=== PATIENT | female | born 1995 | race African-American/Black ===

== ENCOUNTER 2016-11-23 22:26 | Emergency (ER) | payer BC, OTHER ==
[~2016-11-23] VITALS: Ht 170.2 cm; Wt 84.5 kg
[~2016-11-23 22:26] MED LIST: RANI150T9 PO; SUCR1TAB56 PO; ZOF8 PO
[2016-11-23 22:30] VITALS: Ht 170.2 cm; Wt 84.5 kg
[2016-11-23] MEDS ORDERED: ONDANSETRON (ODT) 4 MG TAB ODT STA (23:51)
[2016-11-24] MEDS ORDERED: LIDOCAINE/MYLANTA 40 ML BTL PO ONE
[2016-11-24] MEDS ORDERED: RANITIDINE 150 MG TAB PO ONE
[2016-11-24] MEDS ORDERED: RANI150T9 PO (00:10)
[2016-11-24] MEDS ORDERED: OMEP20CA16 PO (00:10)
--- NOTE | 2016-11-24 03:41 | ERD ---
ER Documentation Chief Complaint Date/Time DATE: 11/24/16 TIME: 03:39 Chief Complaint mid abd pain w/ vomiting x 1 week HPI This patient is a 21-year-old female with past medical history of acid reflux presenting to the emergency department with complaints of mid abdominal pain intermittently for the past week. She reports one episode per day of yellowish vomit. When she has her midepigastric pain she describes it as burning and it lasts for approximately 1 minute then spontaneously resolves. She reports eating a significant amount of spicy and acidic foods. She denies fevers, chills, or other symptoms currently. ROS All systems reviewed and are negative except as per history of present illness. Medications Home Meds Active Scripts Ranitidine Hcl* (Zantac*) 150 Mg Tablet, 150 MG PO BID Y for EPIGASTRIC PAIN, # 30 TAB Prov:RAKAN PAUL PA-C 11/24/16 Omeprazole* (Omeprazole*) 20 Mg Capsule.dr, 20 MG PO DAILY, #20 Prov:RAKAN PAUL PA-C 11/24/16 Ranitidine Hcl* (Zantac*) 150 Mg Tablet, 150 MG PO BID Y for GASTROINTESTINAL UPSET, #30 TAB Prov:RAKAN VEGA 03/22/15 Sucralfate* (Carafate*) 1 Gm Tab, 1 GM PO QID, #30 TAB Prov:RAKAN VEGA SDharmesh 03/22/15 Ondansetron Hcl* (Zofran* ODT) 8 mg -ODT Tab.disper, 8 MG PO Q6 Y for NAUSEA AND /OR VOMITING, #10 TAB Prov:ANNA ARGUETA PA-C 02/13/15 Ranitidine Hcl* (Zantac*) 150 Mg Tablet, 150 MG PO BID for EPIGASTRIC PAIN, #14 TAB Prov:MARTIN STANLEY DO 08/26/14 Allergies Allergies: Coded Allergies: No Known Allergy (Unverified , 08/26/14) PMhx/Soc History of Surgery: No Anesthesia Reaction: No Hx Neurological Disorder: No Hx Respiratory Disorders: No Hx Cardiac Disorders: No Hx Psychiatric Problems: No Hx Miscellaneous Medical Probl: No Hx Alcohol Use: No Hx Substance Use: Yes (OCCASIONAL MARIJUANA) Hx Tobacco Use: No Smoking Status: Current every day smoker Physical Exam Vitals Vital Signs Date Time Temp Pulse Resp B/P Pulse Ox O2 Delivery O2 Flow Rate FiO2 11/23/16 22:30 98.3 77 20 152/85 100 Physical Exam Const: Toxic, well-appearing female in no acute distress. Head: Atraumatic Eyes: Normal Conjunctiva ENT: Normal External Ears, Nose and Mouth. Neck: Full range of motion..~ No meningismus. Resp: Clear to auscultation bilaterally Cardio: Regular rate and rhythm, no murmurs Abd: Soft, mild midepigastric tenderness to palpation, non distended. Normal bowel sounds no rebound tenderness or guarding, no McBurney's point tenderness. Skin: No petechiae or rashes Ext: No cyanosis, or edema Neur: Awake and alert Psych: Normal Mood and Affect Results 24 hrs Current Medications Medications (Trade) Dose Ordered Sig/Enzo Route PRN Reason Start Time Stop Time Status Last Admin Dose Admin Miscellaneous Medication (Gi Cocktail (2)) 40 ml ONCE ONCE PO 11/24/16 00:00 11/24/16 00:01 DC 11/24/16 00:18 Ranitidine HCl (Zantac) 150 mg ONCE ONCE PO 11/24/16 00:00 11/24/16 00:01 DC 11/24/16 00:19 Ondansetron HCl (Zofran Odt) 4 mg ONCE STAT ODT 11/23/16 23:51 11/23/16 23:52 DC 11/24/16 00:18 Procedures/MDM 21-year-old female presents to the emergency department with complaints of burning in the esophagus, midepigastric pain, and vomiting. History and physical examination is consistent with uncomplicated GERD. She was treated in the department with GI cocktail, p.o. ranitidine, and p.o. Zofran. She was feeling improved prior to discharge. I do not feel that further workup was indicated at this time since her symptoms and clinical evaluation is consistent with acute GERD. She was given prescriptions for home. Strict ER return precautions were discussed. Close follow-up with the primary care physician was advised. Low suspicion for acute abdomen or other life-threatening pathology at time of discharge. Departure Diagnosis: Primary Impression: Epigastric pain Condition: Fair Patient Instructions: Gerd (Adult), Epigastric Pain (Uncertain Cause) Referrals: [facility] YOU HAVE RECEIVED A MEDICAL SCREENING EXAM AND THE RESULTS INDICATE THAT YOU DO NOT HAVE A CONDITION THAT REQUIRES URGENT TREATMENT IN THE EMERGENCY DEPARTMENT. FURTHER EVALUATION AND TREATMENT OF YOUR CONDITION CAN WAIT UNTIL YOU ARE SEEN IN YOUR DOCTORS OFFICE WITHIN THE NEXT 1-2 DAYS. IT IS YOUR RESPONSIBILITY TO MAKE AN APPOINTMENT FOR FOLOW-UP CARE. IF YOU HAVE A PRIMARY DOCTOR --you should call your primary doctor and schedule an appointment IF YOU DO NOT HAVE A PRIMARY DOCTOR YOU CAN CALL OUR PHYSICIAN REFERRAL HOTLINE AT IF YOU CAN NOT AFFORD TO SEE A PHYSICIAN YOU CAN CHOSE FROM THE FOLLOWING [facility] [address] [facility] [address] [facility] [facility] [address] [facility] [address] [facility] [address] [facility] [facility]. [address] [place] Additional Instructions: Follow up with your PCP within the next 1-3 days for a repeat evaluation. If you require a referral to a specialist, your Primary Care Provider may be able to provide this for you. In most patient cases, a referral is not required. If you have further questions regarding this matter, please ask your Primary Care Provider. Return the the emergency department immediately if symptoms worsen or change. If you have any questions regarding medications, ask your pharmacist or us before you leave. If any adverse reactions, occur while taking your medications, discontinue the treatment and return to the emergency department immediately. If any new or worsening symptoms, uncontrolled fevers, or other unexplained symptoms occur, return to the emergency department immediately. Take your medications as directed, and complete the entire course of treatment. RAKAN PAUL PA-C Nov 24, 2016 03:41
== END 2016-11-24 00:39 | disposition home or self-care (01) ==
LOC: FTE 22:26
DX: R10.13 Epigastric pain (principal); R11.10 Vomiting, unspecified; F17.210 Nicotine dependence, cigarettes, uncomplicated
CPT/HCPCS: 99283